=== PATIENT | male | born 1935 | race Caucasian/White ===

== ENCOUNTER 2018-07-08 07:57 | Day surgery (SDC) | payer MEDICARE, SELFPAY ==
[2018-07-06 09:52] VITALS: BP 142/71; PULSE 72; RESP 16; TEMP 36.3; O2SAT 97; BMI 27.0
[2018-07-08 08:35] VITALS: BP 127/86; PULSE 71; RESP 16; TEMP 36.7; O2SAT 97; BMI 27.0
[2018-07-08] MEDS: Ciprofloxacin 0.3% 2.5ml Bottle 1 DRP (10:02)
--- NOTE | 2018-07-08 10:20 | DCINST_ITS ---
Discharge Diet: No Restrictions Discharge Activity: Return to Normal Activity Additional Activity Instructions:: Keep ears dry. Allergies/Adverse Reactions: Allergies No Known Allergies Allergy (Verified 07/06/18 09:44) Medications to take at Discharge NK 07/06/18 Primary Care Physician: Nell Arthur MD [Primary Care Provider] - Test Results: Test results from this visit will be discussed in further detail at your follow- up appointment, if applicable. Please Follow Up With: Renaldo Oilvo MD - [phone] When: 1-2 weeks.
[2018-07-08 10:25] VITALS: BP 127/86; BP 139/77; PULSE 69; RESP 16; TEMP 36.4; O2SAT 97
[2018-07-08 10:30] VITALS: BP 127/86; BP 135/86; PULSE 62; RESP 16; O2SAT 96
[2018-07-08 10:35] VITALS: BP 127/86; BP 143/70; PULSE 62; RESP 16; O2SAT 95
[2018-07-08 10:40] VITALS: BP 127/86; BP 138/67; PULSE 65; RESP 16; TEMP 36.4; O2SAT 99
--- NOTE | 2018-07-08 11:16 | PCM.OP.BLANK ---
Operative Report Date of Procedure: 07/08/18 Preoperative diagnosis: Left serous otitis media Postoperative diagnosis: Same Procedure: Left myringotomy with T-type tympanostomy tube placement Anesthesia: General per Kathrine Key CRNA Details of procedure: The patient was transported to the operating room and placed on the OR table in the supine position. After administration of adequate general mask anesthesia the left ear was examined with the microscope. Obvious serous effusion was evident. Myringotomy was created in the anterior inferior aspect and thin serous fluid was evacuated. A T-type tube was placed uneventfully and the procedure terminated. The patient tolerated the procedure well, did not sustain any intraoperative anesthetic or surgical complication, was taken to the PACU where he was noted to be in satisfactory condition. Renaldo Olivo MD
[2018-07-08 11:25] VITALS: BP 127/86
== END 2018-07-08 11:25 | disposition home or self-care (01) ==
LOC: SDC 08:01 → AC 08:05
PROVIDERS: Family Provider Family Medicine; PCP Family Medicine; Referring Provider Otolaryngology Otolaryngology/Facial Plastic Surgery; Visit Provider Otolaryngology Otolaryngology/Facial Plastic Surgery
PROC: (CPT 69436; principal; 2018-07-08 09:30)
DX: H65.22 Chronic serous otitis media, left ear (principal); H69.83 Other specified disorders of Eustachian tube, bilateral; I10 Essential (primary) hypertension; Z87.891 Personal history of nicotine dependence
CPT/HCPCS: 00126; 69436; J7120

== ENCOUNTER 2021-04-23 05:50 | Inpatient (IN) | payer MEDICARE, SELFPAY ==
[2021-04-23] VITALS (13 sets, daily range): BP systolic 116–165; BP diastolic 58–88; PULSE 46–82; RESP 14–18; TEMP 35.8–36.7; O2SAT 96–100; BMI 26.6
[2021-04-23] MEDS: Lactated Ringers 1,000 ML 100 ML IV ×2 (06:46→15:03)
[2021-04-23] MEDS: Cefazolin 1 GM/50 ML BAG IV ×2 (07:48→18:03)
--- NOTE | 2021-04-23 07:51 | OP.PCM_ITS ---
Problems Associated Problem List Diagnoses (1) Lumbar stenosis: Report of Operation Date of Procedure: 04/23/21 Pre-Operative Diagnosis: 1. Lumbar spondylosis, stenosis, L3-4, L4-5, L5-S1 2. lumbar degenerative disc disease L3-4, L4-5, L5-S1 Post-Operative Diagnosis: 1. Lumbar spondylosis, stenosis, L3-4, L4-5, L5-S1 2. lumbar degenerative disc disease L3-4, L4-5, L5-S1 Surgery/Procedure Performed:: 1. L3 bilateral laminectomies, foraminotomies, facetectomies, decompression of bilateral L3 nerve roots. 2. L4 bilateral laminectomies, foraminotomies, facetectomies, decompression of bilateral L4 nerve roots. 3. L5 bilateral laminectomies, foraminotomies, facetectomies, decompression of bilateral L5 nerve roots. Description of Surgical Findings:: STATEMENT OF MEDICAL NECESSITY: The patient is an 86-year-old male with intractable back and leg pain. Image studies confirm above diagnosis. He has failed conservative treatment to include: medicine, therapy, and injections. The patient opted for operative intervention, understanding the risks to include, but not limited to infection, bleeding, damage to nerves, arteries, and veins, possibility of spinal fluid leak, continued pain, need for further surgery, deep vein thrombosis, pulmonary embolism, heart attack, risk of stroke, or . DESCRIPTION OF PROCEDURE: The patient was identified in the preoperative hol ding area. There, he received preoperative IV antibiotics, Ancef, and was then transferred to the operative suite. Once in the operative suite, after general endotracheal anesthesia was established, The patient was transferred to the [place] operating table in the prone position. All bony prominences were padded accordingly. The lumbar spine was prepped and draped in standard surgical fashion. Midline incision was made and taken down to the lumbodorsal fascia. This was divided and subperiosteal dissection taken down to the level of the bilateral L3-4, L4-5, and L5-S1 facet joints. Deep retractors were placed. We began with a series of rongeurs and Kerrisons removing the spinous process and lamina at L3, L4, and L5. Then, foraminotomies were performed, decompressing bilateral the L3, L4, L5 nerve roots. The incision was then thoroughly irrigated. Tissel was placed over the dura as a hemostatic agent. All bleeding was well controlled. Fascia was closed with #1 Vicryl, subcutaneous with 2-0 Vicryl, and skin with 2-0 nylon. Sterile dressing was applied with 4 x 4, ABD, and tape. Sponge, instrument, and needle counts were correct at the end of the case. The patient was extubated, taken to PACU without incident. Surgeon: John Armando Type of Anesthesia: General Specimen's removed: None Drains: None Estimated Blood Loss (mL): 100 Fluids Replaced: 1500 cc Grafts/Implants Used: None Complications None Admit VTE Documentation VTE Present on Admission: No VTE Mechan Device Prophylaxis: SCD's and Knee High GISELLE Hose
--- NOTE | 2021-04-23 07:51 | PCM.PN.ORT ---
Subjective Subjective The patient was seen and examined postoperatively in the PACU. He is resting comfortably. His pain is controlled. He denies any complaints. Objective Data Objective Data Vital Signs: Vital Signs Temp Pulse Resp BP Pulse Ox 98.1 F 73 18 125/65 H 100 04/23/21 06:47 04/23/21 06:47 04/23/21 06:47 04/23/21 06:47 04/23/21 06:47 Oxygen Delivery Method Room Air Weight: 174 lb 13.225 oz Body Mass Index (BMI) 26.6 Physical Exam Const alert, oriented x3 and no apparent distress General Appearance: cooperative and comfortable Orientation / Consciousness: awake HEENT normocephalic and head/scalp atraumatic Eyes EOMs intact bilaterally and conjunctivae normal Neck full ROM and supple Resp normal respiratory effort and normal air movement Cardio regular rate and regular rhythm Peripheral Pulses: pulses 2+ throughout GI soft to palpation, non-tender and non-distended Back/Spine Back/Spine Narrative: Dressing clean dry and intact Cervical Spine: cervical ROM normal Thoracic Spine / Upper Back: normal to inspection Lumbar Spine / Lower Back: normal to inspection Extremity normal to inspection, full ROM, normal capillary refill, no clubbing, cyanosis or edema and no calf tenderness Peripheral Pulses: Yes pulses 2+ throughout Skin General Skin Exam: no breakdown Neuro oriented x3, CN's II-XII intact bilaterally, moves all extremities, no focal motor deficits, no sensory deficits noted and deep tendon reflexes 2+ bilaterally Motor Exam: strength 5/5 throughout Assessment & Plan Assessment/Plan (1) Lumbar stenosis: PLAN: Continue pain control Admit to floor when stable See orders Pain control and mobilization as tolerated with physical therapy Advance diet as tolerated
--- NOTE | 2021-04-23 07:52 | PCM.DC.SUM ---
Providers Date of Admission: 04/23/21 Primary Care Physician: Namrata Vaqsuez, [employer] Reason For Visit: LUMBAR 3, LUMBAR 4, 5 LAMINECTOMY Diagnosis Discharge Diagnosis (1) Lumbar stenosis: Status: Acute Code(s): M48.061 - Spinal stenosis, lumbar region without neurogenic claudication Medications at Discharge Home Medications Cbd Oil 2 drp PO/SL DAILY 04/18/21 tamsulosin 0.4 mg PO DAILY 04/18/21 hydrocodone-acetaminophen 1 tab PO Q4H PRN 7 Days #42 tab 04/23/21 Hospital Course Operations - (L3, L4, L5 laminectomy decompression) Summary of Care Provided Minutes Spent on Discharge: 15 Hospital Course: The patient is an 86-year-old male who underwent L3, L4, L5 laminectomy decompression on 04/23/2021. He was subsequently admitted. The hospitalist was consulted for medical management. The patient did very well. His pain was well controlled and he was mobilizing well. No significant medical issues were reported. He was subsequently discharged home on 04/24/2021 to follow-up with Dr. Armando in 3 weeks. Physical Exam Narrative The patient was seen and examined postoperatively day 1. He is sitting up in bed resting comfortably eating breakfast. His pain is well controlled. He has mobilized up to a chair without issues. He has no complaints including numbness tingling weakness or changes in bowel or bladder function. Const alert, oriented x3 and no apparent distress General Appearance: cooperative and comfortable HEENT normocephalic and head/scalp atraumatic Eyes EOMs intact bilaterally and conjunctivae normal Neck full ROM and supple Resp normal respiratory effort and normal air movement Cardio regular rate and regular rhythm Peripheral Pulses: pulses 2+ throughout GI soft to palpation, non-tender and non-distended Back/Spine Back/Spine Narrative: Dressing clean dry and intact Cervical Spine: cervical ROM normal Thoracic Spine / Upper Back: normal to inspection Lumbar Spine / Lower Back: normal to inspection Extremity full ROM, normal capillary refill, no clubbing, cyanosis or edema and no calf tenderness Peripheral Pulses: Yes pulses 2+ throughout Skin General Skin Exam: no breakdown Neuro oriented x3, CN's II-XII intact bilaterally, moves all extremities, no focal motor deficits, no sensory deficits noted and deep tendon reflexes 2+ bilaterally Motor Exam: strength 5/5 throughout and muscle tone normal throughout Weight / BMI Weight Weight: 174 lb 13.225 oz Body Mass Index (BMI) 26.6 D/C Instructions Discharge Diet: No restrictions Discharge Activity: - (No repetitive bending, twisting, no lifting greater than 5 pounds. Daily dressing changes with iodine to incision. Keep incision covered with waterproof dressing to shower. No bathing or swimming) Weight Bearing Status: Weight bearing as tolerated Lifting Restrictions: 5 pounds Call your doctor if your incision/area has: Continuous Slow Oozing, Sudden Increased Bleeding, Increased Pain/ Swelling, Increased Redness, Foul Smelling Discharge and Swelling at the incision site Call your doctor if you observe: Fever of 101 or Higher, Coldness, Increased Pain, Numbness or Tingling, Change in Color, Inability to urinate, Inability to have a bowel movement, Using more than 1 pad per hour, Shortness of breath, Dizziness, Fainting spells, Swelling in the ankles, Chest pain, Prolonged hiccupping, Increased palpitations (irregular heartbeat), Calf discomfort and Uncontrolled pain Change Dressing in: 1 day Remove Dressing in: 1 day Cleanse incision/area with: Keep Dressing Clean & Dry Additional Dressing/Incision Instructions: Daily dry dressing changes with iodine to incision Please Follow Up With: John Armando DO When: 3 weeks Meaningful Use Info Meaningful Use Diagnoses (Choose all that apply): None applicable Discharge Plan Admission Admit Date/Time: 04/23/21 05:50 Attending Provider: Patricia Oconnor Primary Care Provider: Namrata Vasquez NP Consulting Providers: Zuleyka Robbins Discharge Orders/Prescriptions Prescriptions: New hydrocodone-acetaminophen 5-325 mg tablet 1 tab PO Q4H PRN (Reason: pain) 7 Days Qty: 42 RF: 0 Continued tamsulosin 0.4 mg Capsule 0.4 mg PO DAILY RF: 0 Cbd Oil 2 drp PO/SL DAILY RF: 0 Referrals / Follow Up: Namrata Vasquez NP, [facility] [Primary Care Provider] -
--- NOTE | 2021-04-23 08:00 | RAD_ITS ---
PROCEDURE: Laminectomy and decompression. DATE OF EXAMINATION: 04/23/2021 INDICATION: Male, 86 years old. L3-L5 laminectomy and decompression. FLUOROSCOPY TIME (if supplied): (18 seconds) minutes/seconds. Single image was submitted. RAD/Spine 1 View Any Level IMPRESSION: Intraoperative imaging provided for localization. The localizing metallic instrument is seen posterior to the L4 vertebra. Electronically Signed: August Betancur MD at 13:06 EDT , Service support ,
[2021-04-23] MEDS: THROMBIN (RECOMBINANT) 20,000 UNIT VIAL 20000 UNIT TOPICAL (08:37)
[2021-04-23] MEDS: Bupivacaine 0.25% 30 ML Vial (11:10)
--- NOTE | 2021-04-23 14:48 | PCM.PN.HOSP ---
Documented by User: José Miguel TEAGUE 04/23/21 14:56 Subjective Subjective Patient is a 86-year-old male comfortably resting in bed status post bilateral L3-L4 and L5 laminectomy/decompression. Denies chest pain, shortness of breath, palpitations, hemoptysis, sputum production, fever, chills, N/V/D. Objective Data Objective Data Vital Signs: Vital Signs Temp Pulse Resp BP Pulse Ox 96.5 F L 59 L 16 132/62 H 100 04/23/21 13:12 04/23/21 13:12 04/23/21 13:12 04/23/21 13:12 04/23/21 13:20 Oxygen Flow Rate (L/min) 6 Oxygen Delivery Method Simple Mask Weight: 174 lb 13.225 oz Body Mass Index (BMI) 26.6 Intake & Output: Intake and Output for Last 24 Hours 04/21/21 04/22/21 04/23/21 23:59 23:59 23:59 Intake Total 50 / 50 Output Total 350 / 350 Balance -300 / -300 Radiography Diagnostic Testing: Radiology Impression Spine X-Ray 04/23/21 08:00 IMPRESSION: Intraoperative imaging provided for localization. The localizing metallic instrument is seen posterior to the L4 vertebra. Electronically Signed: August Betancur MD at 13:06 EDT , Service support , Physical Exam Const alert, oriented x3 and no apparent distress HEENT head/scalp atraumatic and moist oral mucous membranes Head and Scalp: normocephalic Eyes EOMs intact bilaterally and conjunctivae normal Neck no lymphadenopathy, supple and no JVD Resp normal respiratory effort, no retractions, no use of accessory muscles and clear to auscultation bilaterally Cardio regular rate, regular rhythm, no murmurs and no JVD GI normal to inspection, nondistended, normoactive bowel sounds, soft to palpation and non-tender Extremity normal to inspection and no clubbing, cyanosis or edema Skin no rashes or lesions noted, no wounds and skin turgor normal Neuro CN's II-XII intact bilaterally Psych affect normal Assessment & Plan Assessment/Plan (1) Lumbar stenosis: (2) Benign prostatic hyperplasia: PLAN: Patient is an 86-year-old male who presents to the hospital medicine service on consult from orthopedics department for bilateral L3-L4 and L5 laminectomy/decompression for L3-S1 lumbar spondylosis and stenosis. 1) benign prostatic hypertrophy Continue Flomax. 2) history of hypertension Not on any home medications since 2017. Current blood pressure is stable, continue to monitor. 2) L3-S1 spondylosis and stenosis Status post bilateral L3, L4 and L5 laminectomy/decompression. Management per orthopedics department. DVT prophylaxis - SCDs Patient seen by José Miguel Troy PA-C, under the supervision of Dr. Robbins. Documented by User: Dr. Zuleyka Robbins MD 04/23/21 19:49 Charges/Coding Visit Charges Inpatient E&M: 82253 Subs Hosp L3
[2021-04-23] MEDS: Tamsulosin HCl 0.4 MG Capsule PO (15:04)
[2021-04-23] MEDS: Acetaminophen 500 MG Tablet 1000 MG PO ×2 (15:04→21:26)
[2021-04-23] MEDS: Metaxalone 800 MG Tablet PO (15:05)
[2021-04-24] MEDS: Cefazolin 1 GM/50 ML BAG IV (00:18)
[2021-04-24] MEDS: 0.9% Saline Lock 10 ML Syringe IV (01:03)
[2021-04-24] MEDS: Acetaminophen 500 MG Tablet 1000 MG PO (04:56)
[2021-04-24 05:00] VITALS: BP 113/78; PULSE 66; RESP 16; TEMP 36.5; O2SAT 98
[2021-04-24 07:32] VITALS: O2SAT 96
[2021-04-24] MEDS: Tamsulosin HCl 0.4 MG Capsule PO (08:04)
--- NOTE | 2021-04-24 09:50 | CASEMGMT ---
VEL MANNING Assessment: Face to Face with pt for initial transition planning/care coordination assessment. RN KERRI introduced self and role at [facility], pt voices understanding and consents to assessment. Pt is A/O x4 and answers all questions appropriately at this time. Pt sitting up in chair in no distress. came in during assessment. Care providers, pharmacy, and demographics verified/updated. Admitting Dx: lumbar 3, lumbar 4, 5 laminectomy PCP:Namrata Vasquez RAYON CONER Specialists:Tr, spine surgeon; marta Arthur Preferred Pharmacy: [facility] while inpt- pt already has received meds brought to room. Insurance: [facility] Prescription Benefit: yes, pt states he has [employer] which pays for 65% of his rx costs. LW/HPOA: Pt thought he had a LW/DPOA and pulled papers out of his bag, although what he has is a [employer]. Pt states he will look for his paperwork at home. He is aware that it is not on file at [facility]. LNOK: Kellee Atrhur, Living Arrangements: Pt lives with in a cluster home house, single story with . Pt states he is I in ADL's and denies concerns at home. Transportation: Pt states he drives self and denies issues with transportation. DME/HHC/SNF: Pt has a rollator and cane at home. Denies hx of HHC but has been in [facility]. Pt states no concerns with going home at time of dc. Pt states no further concerns/needs. CM to follow. Advised pt to ask CM if any further question/concerns/needs arise, voices understanding. Pt Goal: Home Plan: Home with support.
--- NOTE | 2021-04-24 11:04 | PCM.PN.HOSP ---
Subjective Subjective Patient states he is feeling well. Urinating without difficulty. Minimal low back pain since surgery. He states has not been out of bed yet today. Reports his surgeon told him he is discharging him today. Objective Data Objective Data Vital Signs: Vital Signs Temp Pulse Resp BP Pulse Ox 97.7 F L 66 16 113/78 96 04/24/21 05:00 04/24/21 05:00 04/24/21 05:00 04/24/21 05:00 04/24/21 07:32 Oxygen Flow Rate (L/min) 6 Oxygen Delivery Method Room Air Weight: 79.3 kg Body Mass Index (BMI) 26.6 Intake & Output: Intake and Output for Last 24 Hours 04/22/21 04/23/21 04/24/21 23:59 23:59 23:59 Intake Total 1235.00 / 1235.00 1348.33 / 1348.33 Output Total 350 / 350 925 / 925 Balance 885.00 / 885.00 423.33 / 423.33 Radiography Diagnostic Testing: Radiology Impression Spine X-Ray 04/23/21 08:00 IMPRESSION: Intraoperative imaging provided for localization. The localizing metallic instrument is seen posterior to the L4 vertebra. Electronically Signed: August Betancur MD at 13:06 EDT , Service support , Physical Exam Const alert, oriented x3, no apparent distress, average body habitus and healthy appearing Constitutional Narrative: Elderly white male sitting up in bed, appears younger than stated age, nontoxic, appears well Exam Limitations: no limitations Resp normal respiratory effort, no retractions, no use of accessory muscles and clear to auscultation bilaterally Cardio regular rate, regular rhythm, S1 normal heart sound, S2 normal heart sound, no murmurs, no rub, no gallops, no clicks and no JVD GI normal to inspection, nondistended, normoactive bowel sounds, soft to palpation, non-tender and non-distended Extremity no clubbing, cyanosis or edema Peripheral Pulses: Yes pulses 2+ throughout Neuro oriented x3 and CN's II-XII intact bilaterally Sensorium / Orientation: awake and alert Speech: speech normal Psych affect normal Assessment & Plan Assessment/Plan (1) Lumbar stenosis: PLAN: Spinal stenosis/spondylosis L3-S1 status post bilateral L3-L5 laminectomies, foraminotomies, facetectomies, and nerve root decompression -Postop day 1 -Pain is well controlled -Continue pain management per primary service -Would recommend continued bowel regimen while patient is on narcotics -Therapy services per primary service -Okay for discharge from medical standpoint BPH -Continue Flomax History of hypertension -Patient is currently on no oral medication for his blood pressure -Blood pressure stable -Continue to monitor DVT prophylaxis -SCDs until discharge Charges/Coding Visit Charges Inpatient E&M: 38760 Subs Hosp L2
== END 2021-04-24 10:50 | disposition home or self-care (01) | DRG 517 ==
LOC: ACINP 06:01 → MS3 15:11
PROVIDERS: Admitting Provider Orthopaedic Surgery; PCP Nurse Practitioner Family; Referring Provider Orthopaedic Surgery; Visit Provider Internal Medicine
PROC: 01NB0ZZ Release Lumbar Nerve, Open Approach (ICD-10-PCS; CPT 63030; principal; 2021-04-23 07:30)
DX: M48.062 Spinal stenosis, lumbar region with neurogenic claudication (principal); M47.816 Spondylosis without myelopathy or radiculopathy, lumbar region; M51.36 Other intervertebral disc degeneration, lumbar region; M16.11 Unilateral primary osteoarthritis, right hip; G89.29 Other chronic pain; I10 Essential (primary) hypertension; N40.0 Benign prostatic hyperplasia without lower urinary tract symptoms; Z79.899 Other long term (current) drug therapy; Z86.16 Personal history of COVID-19; Z87.891 Personal history of nicotine dependence
CPT/HCPCS: 72020; 76000; 97162; 99251; J7120; A4216; G0463; J2405